=== PATIENT | female | born 1960 | race Caucasian/White ===

== ENCOUNTER 2023-04-20 11:47 | Inpatient (IN) | payer MEDICAID ==
[~2023-04-20] VITALS: Ht 162.6 cm; Wt 96.4 kg
[2023-04-20] MEDS: LABETALOL HCL 5 MG/ML 4ML SYRINGE IV ONE (12:30)
[2023-04-20 12:35] LABS: Basophils # (auto) 0 10 ^3/uL (0-0.2); Eosinophils # (auto) 0.1 10 ^3/uL (0-0.8); Eosinophils % (auto) 2.9 % (0.0-7.0); Hematocrit 43.1 % (36.0-46.0); Hemoglobin 14.4 g/dL (12.2-16.2); Lymphocytes % (auto) 44.3 % (10.0-50.0); Mean Corpuscular Hemoglobin 29.5 pg (28.0-32.0); Mean Corpuscular Hgb Conc. 33.4 g/dL (32.0-36.0); Mean Corpuscular Volume 88.6 fL (80.0-100.0); Monocytes # (auto) 0.4 10 ^3/uL (0-1.3); Monocytes % (auto) 9.8 % (0.0-12.0); Neutrophils # (auto) 1.9 10 ^3/uL (1.6-8.6); Red Blood Cells 4.87 10^6/uL (4.0-5.20); Red Cell Distribution Width 13.4 % (11.8-14.3); White Blood Cell 4.5 10^3/uL (4.4-10.8)
[2023-04-20] MEDS: SODIUM CHLORIDE 0.9% 1,000 ML IV ONE (12:50)
[2023-04-20 12:56] LABS: Alanine Aminotransferase 27 U/L (7-40); Albumin 4.4 g/dL (3.2-4.8); Alkaline Phosphatase 78 U/L (46-116); Anion Gap 8 (5-15); Aspartate Aminotransferase 22 U/L (13-40); BUN/Creatinine Ratio 18.1 (10.0-20.0); Bilirubin, Total 0.6 mg/dL (0.2-1.0); Blood Urea Nitrogen 26 mg/dL (9-23); Calcium 10.3 mg/dL (8.5-10.1); Carbon Dioxide 22 mmol/L (20-30); Chloride 111 mmol/L (98-107); Glucose 141 mg/dL (74-106); Potassium 4.7 mmol/L (3.5-5.1); Sodium 141 mmol/L (136-145); Total Protein 6.3 g/dL (5.7-8.2)
[2023-04-20] MEDS: ASPirin 325 MG TAB PO ONE (12:56)
[2023-04-20 13:10] LABS: Magnesium 1.9 mg/dL (1.6-2.6)
[2023-04-20] MEDS ORDERED: HYDROmorphone HCL 2 MG/ML VL/or syr IV PRN (16:00)
[2023-04-20] MEDS ORDERED: dilTIAZem 25 MG/5 ML VIAL IV PRN (16:00)
[2023-04-20] MEDS ORDERED: HYDROcodone-ACET 5/325MG TAB PO PRN (16:00)
[2023-04-20] MEDS ORDERED: DOCUSATE SOD 100 MG CAP PO PRN (16:00)
[2023-04-20 16:51] LABS: Urine Bacteria FEW /hpf (None Seen); Urine Blood Negative /uL (Negative); Urine Clarity Clear (Clear); Urine Color Yellow (Yellow); Urine Hyaline Cast FEW /lpf (0 - 2); Urine Mucus FEW (None Seen); Urine Protein, UAD 1+ (Negative); Urine Specific Gravity 1.026 (1.001-1.035); Urine Urobilinogen Normal (Negative); Urine WBC 1 /hpf (0 - 5); Urine pH 6.5 (5.0-8.0)
[2023-04-20 17:11] LABS: Creatinine, Urine 235.64 mg/dL (30.0-125.0)
[2023-04-20] MEDS: SODIUM CHLOR 0.9% PF (SALINE LOCK) 10ML VIAL/SYR IV SCH (22:00)
[2023-04-20] MEDS: LACTATED RINGER'S 1,000 ML IV ONE (23:21)
[2023-04-20] MEDS: ACETAMINOPHEN 325 MG TAB PO PRN (23:27)
[2023-04-21] VITALS (8 sets, daily range): BP systolic 102–140; BP diastolic 40–85; PULSE 72–85; RESP 17–19; TEMP 97.4–98.6; O2SAT 96–99
[2023-04-21] MEDS ORDERED: OMEP-448 PO (04:20)
[2023-04-21] MEDS ORDERED: ATOR10TA52 PO (04:20)
[2023-04-21] MEDS ORDERED: LEVO50TA7 PO (04:20)
[2023-04-21] MEDS ORDERED: LISI10TA34 PO (04:20)
[2023-04-21] MEDS ORDERED: LABE100T4 PO (04:20)
[2023-04-22 05:00] VITALS: BP 131/64; PULSE 68; RESP 18; TEMP 97.6; O2SAT 96
[2023-04-22 08:00] VITALS: RESP 18; O2SAT 98
[2023-04-22 08:51] VITALS: BP 121/56; PULSE 80; RESP 16; TEMP 97.9; O2SAT 99
[2023-04-22] MEDS ORDERED: AMLO1TAB21 PO (11:36)
[2023-04-22] MEDS: amLODIPine BESYLATE 5 MG TAB PO ONE (12:32)
[2023-04-22 12:51] VITALS: BP 144/71; PULSE 73; RESP 15; TEMP 98.3; O2SAT 97
[2023-04-22 13:18] LABS: Chloride 109 mmol/L (98-107); Potassium 3.9 mmol/L (3.5-5.1); Sodium 141 mmol/L (136-145)
[2023-04-22 13:19] LABS: Anion Gap 10 (5-15); Calcium 9.4 mg/dL (8.5-10.1); Carbon Dioxide 22 mmol/L (20-30)
[2023-04-22 13:24] LABS: BUN/Creatinine Ratio 14.4 (10.0-20.0); Blood Urea Nitrogen 17 mg/dL (9-23); Glucose 115 mg/dL (74-106)
[2023-04-22 14:29] VITALS: BP 120/57; PULSE 99; RESP 18; TEMP 36.8; O2SAT 99
[2023-04-22 16:38] VITALS: BP 141/57; PULSE 74; RESP 15; TEMP 98; O2SAT 95
== END 2023-04-22 16:02 | disposition home or self-care (01) | DRG 422 ==
LOC: ER 11:47 → OVERFLOW 16:00 → WEST WING 04-21 03:00
PROVIDERS: ADMIT Internal Medicine; ATTEND Internal Medicine
DX: E86.0 Dehydration (principal); N17.0 Acute kidney failure with tubular necrosis; I10 Essential (primary) hypertension; R00.2 Palpitations; R73.03 Prediabetes; R00.0 Tachycardia, unspecified; Z90.49 Acquired absence of other specified parts of digestive tract; Z90.710 Acquired absence of both cervix and uterus
CPT/HCPCS: 36415; 71045; 76775; 80048; 80053; 81001; 82570; 83605; 83735; 83880; 84300; 84439; 84443; 84484; 85025; 93005; 93306; 96360; G0378; J3490

== ENCOUNTER → 2025-01-22 | Day surgery (SDC) | payer OTHER, MEDICAID ==
[2025-01-16 12:32] LABS: Hematocrit 41.5 % (36.0-46.0); Hemoglobin 14.1 g/dL (12.2-16.2); Mean Corpuscular Hemoglobin 29.5 pg (28.0-32.0); Mean Corpuscular Volume 87.2 fL (80.0-100.0); Nucleated Red Blood Cells % 0.1 %
[2025-01-16 12:53] LABS: INR 1.01 (0.9-1.15); Partial Thromboplastin Time 28.2 SEC (24.5-34.5); Prothrombin Time 10.7 sec (9.3-11.8)
[2025-01-16 13:15] LABS: Urine Protein, UAD Negative (Negative)
[2025-01-16 13:26] LABS: Alanine Aminotransferase 21 U/L (7-40); Albumin 4.7 g/dL (3.2-4.8); Alkaline Phosphatase 112 U/L (46-116); Anion Gap 12 (5-15); BUN/Creatinine Ratio 11.6 (10.0-20.0); Blood Urea Nitrogen 14 mg/dL (9-23); Calcium 9.9 mg/dL (8.7-10.4); Carbon Dioxide 26 mmol/L (20-31); Chloride 105 mmol/L (98-107); Glucose 101 mg/dL (74-106); Potassium 4.3 mmol/L (3.5-5.1); Sodium 143 mmol/L (136-145); Total Protein 7.6 g/dL (5.7-8.2)
[2025-01-16 13:27] LABS: Bilirubin, Total 0.5 mg/dL (0.2-1.0)
[~2025-01-22] VITALS: Ht 162.6 cm; Wt 97.5 kg
[~2025-01-22] MED LIST: AMLO1TAB22 PO; ATOR10TA52 PO; HYDROmorphone HCL 2 MG/ML VL/or syr IV PRN; KETOROLAC TROMETH 30 MG/ML 1ML VIAL IV ONE; LEVO50TA7 PO; LIDOCAINE 1% (LOCAL ANESTH.) PF 5ml SDV ONE; MEPERIDINE HCL (25 MG/ML) 1ML VIAL ONE; MET50T PO; METOCLOPRAMIDE HCL 5MG/ml INJ 2ml VIAL IV PRN; MIDAZOLAM HCL 2MG/2ML 2ml VIAL (1mg/ml) ONE; MORPHINE SULFATE 4 MG/ML SYR/VIAL IV PRN; MORPHINE SULFATE INJ 2 MG/ml SYRG IV PRN; OMEP-448 PO; ONDANSETRON HCL 4 MG/2 ML VIAL ONE; PROPOFOL 10 MG/ML 20 ML IV ONE; SODIUM CHLORIDE LOCK 10 ML ONE; ceFAZolin 2 GM/D5W50ml 50 ML IV ONE; fentaNYL CITRATE 100 MCG/2 ML VL ONE
[2025-01-22] MEDS: LIDOCAINE 1% HCL (LOCAL ANESTH.) INJ 20ML MDV ONE (13:11)
[2025-01-22 13:28] VITALS: PULSE 96; RESP 13; O2SAT 94
--- NOTE | 2025-01-22 13:28 | DVHOP2 ---
Operative Report - 2 Report Details Date: 01/22/25 Preop Diagnosis: 1. Left foot neuroma 2. Left foot pain Postop Diagnosis: Same as preop Surgeon: Dom Pratt MD Anesthesiologist: See anesthesia Anesthesia: Mac Consent: The patient was informed of the risks and benefits of the procedure. These include but are not limited to complications of anesthesia, postoperative infection, incomplete relief of symptoms, recurrence of symptoms, damage to blood vessels, nerves and tendons, deep venous thrombosis, pulmonary embolism and possible need for repeat surgery in the future. Complications: None Estimated Blood Loss: Minimal Fluids: See anesthesia Findings: Consistent with diagnosis Indications for Surgery: Left foot pain Name of Procedure Performed 1. Left foot neuroma excision (77698) 2. Left foot nerve decompression (63589) Procedure Details Procedure Details: PRE-PROCEDURE INFORMATION: In the pre-op holding area, the extremity to be operated on was clearly marked and the patient verified correct laterality of the marking. The patient was transferred to the OR table and placed in a supine position. A timeout was performed in which identification of the correct p atient, procedure, location, and materials was done. The left foot and leg were prepped and draped in normal sterile fashion. DESCRIPTION OF PROCEDURE: Attention was directed to the left foot where linear incision was made at the dorsal 1st interspace. Care was taken throughout the dissection to avoid damage to the neurovascular and tendinous structures. Hemostasis was achieved via electrocautery. The incision was deepened through blunt dissection to the level of the deep transverse intermetatarsal ligament. Once the ligament was visualized it was transected using dissecting scissors, effectively decompressing the underlying plantar nerve. 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 The nerve was dissected proximally and was transected. All surgical wounds were irrigated copiously with saline and closed in layers with the aforementioned suture material. A dry sterile dressing was placed on the surgical extremity. The patient was placed in a postop shoe POSTOPERATIVE INFORMATION: The patient tolerated the above noted procedure and anesthesia well and was transferred to the PACU with vital signs stable, and vascular status intact with capillary refill intact to all digits. Postoperative instructions reviewed in detail with the patient with written instructions provided. Patient will return to clinic in approximately 10-14 days for first postoperative visit. Patient has the number of the clinic and was instructed to call prior to that time should any problems, questions, or concerns arise. Condition Good Disposition Home Visit Coding Podiatry Date of Service if different f: Jan 22, 2025 Billing Provider: DOM PRATT DPM Podiatry Common Visit Codes: PROCEDURE ONLY DOM PRATT DPM Jan 22, 2025 13:28
[2025-01-22 14:13] VITALS: BP 129/64; PULSE 85; RESP 16; O2SAT 98
== END | disposition home or self-care (01) ==
LOC: SUR 11:27
PROVIDERS: ATTEND Podiatrist
DX: D36.13 Benign neoplasm of peripheral nerves and autonomic nervous system of lower limb, including hip (principal); G57.62 Lesion of plantar nerve, left lower limb; M72.2 Plantar fascial fibromatosis; E66.9 Obesity, unspecified; Z68.36 Body mass index [BMI] 36.0-36.9, adult; Z79.890 Hormone replacement therapy; Z79.899 Other long term (current) drug therapy; Z98.890 Other specified postprocedural states; Z88.8 Allergy status to other drugs, medicaments and biological substances; Z80.8 Family history of malignant neoplasm of other organs or systems; Z82.0 Family history of epilepsy and other diseases of the nervous system; Z83.3 Family history of diabetes mellitus; Z82.49 Family history of ischemic heart disease and other diseases of the circulatory system
CPT/HCPCS: 28080; 36415; 80053; 81001; 85025; 85610; 85730; J0690; J2003; J2175; J2250; J2405; J2704; J3010